=== PATIENT | male | born 1995 | race African-American/Black ===

== ENCOUNTER 2023-05-18 09:16 | Inpatient (IN) | payer OTHER ==
[2023-05-18] MEDS ORDERED: KETOROLAC TROMETHAMINE 30 MG/1 ML VIAL IM ONE (09:57)
[2023-05-18] MEDS ORDERED: LIDOCAINE 5% TOPICAL PATCH TP ONE (09:57)
[2023-05-18] MEDS ORDERED: LIDOCAINE 5% TOPICAL PATCH ONE (10:04)
[2023-05-18] MEDS ORDERED: KETOROLAC TROMETHAMINE 30 MG/1 ML VIAL ONE (10:04)
[2023-05-18] MEDS ORDERED: DEXAMETHASONE SOD PHOSPHATE 10 MG/1 ML VIAL IM ONE (11:33)
[2023-05-18] MEDS ORDERED: DEXAMETHASONE SOD PHOSPHATE 10 MG/1 ML VIAL ONE (11:38)
[2023-05-18 14:56] LABS: BASO % 0.3 % (0-2.0); HEMATOCRIT 45.5 % (35.4-49); HEMOGLOBIN 14.9 GM/dL (11.7-16.9); LYMPH % 13.5 % (8-40); MCH 24.9 pg (25.7-33.7); MCHC 32.8 g/dl (32.0-35.9); MEAN CELL VOLUME 75.8 fl (80-96); MEAN PLT VOLUME 9.4 fl (7.5-11.1); MONO % 2.2 % (3.8-10.2); PLATELET COUNT 250 10^3/uL (134-434); RDW 13.5 % (11.9-15.9); WHITE BLOOD COUNT 7.2 K/mm3 (4.0-10.0)
[2023-05-18 15:03] LABS: INR 1.08 (0.83-1.09); PROTHROMBIN TIME (PATIENT) 12.5 SEC (9.7-13.0)
[2023-05-18 15:06] LABS: ACTIVATED PTT 37.1 SECONDS (25.2-36.5)
[2023-05-18 15:16] LABS: CALCIUM 9.8 mg/dL (8.5-10.1)
[2023-05-18 15:17] LABS: ALBUMIN 4.1 g/dl (3.4-5.0); BLOOD UREA NITROGEN 17.4 mg/dL (7-18)
[2023-05-18 15:22] LABS: BILIRUBIN,TOTAL 0.3 mg/dL (0.2-1); TOT PROT 8.1 g/dl (6.4-8.2)
[2023-05-18] MEDS ORDERED: HYDROmorphone HCl 2 MG/ML VIAL IVPB PRN (17:09)
[2023-05-18] MEDS ORDERED: HYDROmorphone HCl 2 MG/ML VIAL ONE (19:48)
[2023-05-18] MEDS ORDERED: LIDOCAINE PATCH REMOVAL MC ONE (22:00)
[2023-05-18 23:42] VITALS: BMI 43.8
[2023-05-19] MEDS: CYCLOBENZAPRINE HCL 5 MG TABLET PO SCH ×4 (00:17→21:37)
[2023-05-19] MEDS ORDERED: traMADol HCL 50 MG TABLET PO PRN (08:45)
[2023-05-19] MEDS: ENOXAPARIN NA (PORCINE) 40 MG/0.4 ML DISP.SYRIN SQ SCH (10:50)
[2023-05-19] MEDS: KETOROLAC TROMETHAMINE 30 MG/1 ML VIAL IVPUSH SCH ×2 (11:56→18:22)
[2023-05-19] MEDS: GABAPENTIN 100 MG CAPSULE PO SCH ×2 (14:16→21:37)
[2023-05-19] MEDS ORDERED: FAMOTIDINE 20 MG TABLET PO ONE (19:51)
[2023-05-19] MEDS: methylPREDNISolone 4 MG TABLET PO SCH ×2 (20:11→21:37)
[2023-05-19 22:47] VITALS: RESP 20
[2023-05-20] MEDS: KETOROLAC TROMETHAMINE 30 MG/1 ML VIAL IVPUSH SCH ×2 (02:23→09:23)
[2023-05-20] MEDS: GABAPENTIN 100 MG CAPSULE PO SCH (06:11)
[2023-05-20] MEDS: CYCLOBENZAPRINE HCL 5 MG TABLET PO SCH (06:11)
[2023-05-20 07:39] VITALS: BP 111/50; PULSE 60; TEMP 98.3
[2023-05-20] MEDS: ENOXAPARIN NA (PORCINE) 40 MG/0.4 ML DISP.SYRIN SQ SCH (09:24)
[2023-05-20] MEDS: methylPREDNISolone 4 MG TABLET PO SCH (09:25)
[2023-05-20] MEDS ORDERED: methylPREDNISolone 4 MG TABLET PO SCH (18:00)
== END 2023-05-20 12:53 | disposition home or self-care (01) | DRG 347 ==
LOC: JERFT 09:16 → JERBED 13:56 → OBSVTOIN 17:07 → J8W 22:52
PROVIDERS: ADMIT Internal Medicine; ATTEND Internal Medicine
DX: M48.061 Spinal stenosis, lumbar region without neurogenic claudication (principal); Z68.41 Body mass index [BMI] 40.0-44.9, adult; M51.16 Intervertebral disc disorders with radiculopathy, lumbar region; I10 Essential (primary) hypertension; E66.01 Morbid (severe) obesity due to excess calories
CPT/HCPCS: 36415; 72148-TC; 80053; 85025; 85610; 85730; 86850; 86900; 86901; 97116-GP; 97161-GP; 99285-25; G0378; J1100

== ENCOUNTER 2023-06-23 18:40 | Observation (INO) | payer OTHER ==
[2023-06-23 20:07] VITALS: BMI 42.0
[2023-06-23] MEDS ORDERED: ACETAMINOPHEN 1000 MG/100 ML BAG IVPB ONE (20:16)
[2023-06-23] MEDS ORDERED: ACETAMINOPHEN INJECTION 100 ML IVPB ONE (20:37)
[2023-06-23 20:48] LABS: BASO % 0.3 % (0-2.0); EOS % 0.4 % (0-4.5); HEMATOCRIT 43.8 % (35.4-49); HEMOGLOBIN 14.5 GM/dL (11.7-16.9); LYMPH % 17.9 % (8-40); MCH 25.1 pg (25.7-33.7); MCHC 33.1 g/dl (32.0-35.9); MEAN PLT VOLUME 9.1 fl (7.5-11.1); MONO % 6.5 % (3.8-10.2); NEUT % 74.9 % (42.8-82.8); PLATELET COUNT 260 10^3/uL (134-434); RBC 5.76 M/mm3 (4.00-5.60); RDW 14.2 % (11.9-15.9)
[2023-06-23] MEDS ORDERED: LIDOCAINE 5% TOPICAL PATCH TP ONE ×2 (21:06)
[2023-06-23] MEDS ORDERED: LIDOCAINE 4% PATCH TP ONE (21:10)
[2023-06-23 21:18] LABS: CALCIUM 9.6 mg/dL (8.5-10.1); POTASSIUM 4.2 mmol/L (3.5-5.1)
[2023-06-23 21:19] LABS: ALBUMIN 4.1 g/dl (3.4-5.0)
[2023-06-23 21:22] LABS: CREATININE 0.9 mg/dL (0.55-1.3)
[2023-06-23 21:24] LABS: BILIRUBIN,TOTAL 0.5 mg/dL (0.2-1); TOT PROT 7.8 g/dl (6.4-8.2)
[2023-06-23] MEDS ORDERED: LIDOCAINE PATCH REMOVAL MC SCH (22:00)
[2023-06-24] MEDS ORDERED: KETOROLAC TROMETHAMINE 15 MG/ML VIAL IVPUSH ONE (00:16)
[2023-06-24] MEDS ORDERED: METHOCARBAMOL 500 MG TABLET PO ONE (00:17)
[2023-06-24] MEDS ORDERED: METHOCARBAMOL 500 MG TABLET ONE (01:13)
[2023-06-24] MEDS ORDERED: KETOROLAC TROMETHAMINE 15 MG/ML VIAL ONE (01:13)
[2023-06-24] MEDS ORDERED: ACETAMINOPHEN 1000 MG/100 ML BAG IVPB PRN (05:21)
[2023-06-24] MEDS ORDERED: KETOROLAC TROMETHAMINE 15 MG/ML VIAL IVPUSH PRN (05:22)
[2023-06-24] MEDS ORDERED: ALBUTEROL SO4 HFA INHALER IH PRN (08:02)
[2023-06-24] MEDS ORDERED: GABAPENTIN 100 MG CAPSULE ONE ×2 (08:13→17:19)
[2023-06-24] MEDS ORDERED: CYCLOBENZAPRINE HCL 5 MG TABLET ONE ×2 (08:14→17:19)
[2023-06-24] MEDS: GABAPENTIN 100 MG CAPSULE PO SCH ×3 (08:17→22:52)
[2023-06-24] MEDS: CYCLOBENZAPRINE HCL 5 MG TABLET PO SCH ×3 (08:17→22:51)
[2023-06-24 08:50] LABS: BASO % 0.3 % (0-2.0); HEMOGLOBIN 13.8 GM/dL (11.7-16.9); LYMPH % 40.2 % (8-40); MCH 25.6 pg (25.7-33.7); MCHC 33.6 g/dl (32.0-35.9); MEAN CELL VOLUME 76.3 fl (80-96); NEUT % 49.5 % (42.8-82.8); PLATELET COUNT 229 10^3/uL (134-434); RBC 5.38 M/mm3 (4.00-5.60); RDW 13.9 % (11.9-15.9); WHITE BLOOD COUNT 6.9 K/mm3 (4.0-10.0)
[2023-06-24 09:18] LABS: POTASSIUM 3.6 mmol/L (3.5-5.1)
[2023-06-24 09:25] LABS: BLOOD UREA NITROGEN 12.8 mg/dL (7-18); CALCIUM 9.3 mg/dL (8.5-10.1); MAGNESIUM 1.9 mg/dL (1.8-2.4)
[2023-06-24 09:29] LABS: CREATININE 0.8 mg/dL (0.55-1.3)
[2023-06-24] MEDS ORDERED: HYDROCHLOROTHIAZIDE 25 MG TABLET (FP) ONE (09:39)
[2023-06-24] MEDS ORDERED: HYDROCHLOROTHIAZIDE 25 MG TABLET (FP) PO SCH (10:00)
[2023-06-24] MEDS ORDERED: LIDOCAINE PATCH REMOVAL MC ONE (10:00)
[2023-06-25] MEDS: CYCLOBENZAPRINE HCL 5 MG TABLET PO SCH ×2 (05:58→13:57)
[2023-06-25] MEDS: GABAPENTIN 100 MG CAPSULE PO SCH ×2 (05:58→13:57)
[2023-06-25 09:00] VITALS: RESP 18
[2023-06-25] MEDS ORDERED: amLODIPine BESYLATE 5 MG TABLET (FP) PO SCH (10:00)
[2023-06-25 15:40] VITALS: BP 133/66; PULSE 81; TEMP 97.6
== END 2023-06-25 15:57 | disposition home or self-care (01) ==
LOC: JER 18:40 → JERBED 06-24 00:39 → J4S 06-24 20:29
PROVIDERS: ADMIT Internal Medicine; ATTEND Family Medicine
PROC: 3E033NZ Introduction of Analgesics, Hypnotics, Sedatives into Peripheral Vein, Percutaneous Approach (ICD-10-PCS; principal; 2023-06-24)
PROC: 3E0333Z Introduction of Anti-inflammatory into Peripheral Vein, Percutaneous Approach (ICD-10-PCS; 2023-06-24)
DX: I10 Essential (primary) hypertension (principal); G89.29 Other chronic pain; M51.16 Intervertebral disc disorders with radiculopathy, lumbar region; R42 Dizziness and giddiness; M54.9 Dorsalgia, unspecified; R55 Syncope and collapse; E66.01 Morbid (severe) obesity due to excess calories; Z68.41 Body mass index [BMI] 40.0-44.9, adult
CPT/HCPCS: 36415; 70450-TC; 71045-TC-FY; 72125-TC; 72128-TC; 72131-TC; 73030-TC-RT-FY; 80048; 80053; 83735; 84100; 84484; 85025; 93005; 93010; 93306-TC; 96374; 96375; 96376; 97116-GP; 97161-GP; 99285-25; G0378

== ENCOUNTER 2023-10-25 09:27 | Emergency (ER) | payer OTHER ==
[2023-10-25 09:43] VITALS: BP 148/89; PULSE 62; RESP 18; TEMP 97.9; BMI 39.5
[2023-10-25] MEDS ORDERED: LIDOCAINE 4% PATCH TP ONE (11:24)
[2023-10-25] MEDS ORDERED: KETOROLAC TROMETHAMINE 30 MG/1 ML VIAL ONE (11:24)
[2023-10-25] MEDS ORDERED: ACETAMINOPHEN 500 MG TABLET (FP) ONE (11:24)
[2023-10-25] MEDS: KETOROLAC TROMETHAMINE 30 MG/1 ML VIAL IM ONE (11:28)
[2023-10-25] MEDS: ACETAMINOPHEN 500 MG TABLET (FP) PO ONE (11:28)
[2023-10-25] MEDS: LIDOCAINE 4% PATCH TP ONE (11:32)
[2023-10-25] MEDS ORDERED: oxyCODONE HCL 5 MG TABLET ONE (12:54)
[2023-10-25] MEDS: oxyCODONE HCL 5 MG TABLET PO ONE (12:55)
[2023-10-25] MEDS ORDERED: LIDOCAINE PATCH REMOVAL MC SCH (22:00)
== END 2023-10-25 13:56 | disposition home or self-care (01) ==
LOC: JERFT 09:27 → JER 09:27 → JERFT 13:56
PROC: 3E0233Z Introduction of Anti-inflammatory into Muscle, Percutaneous Approach (ICD-10-PCS; principal; 2023-10-25)
DX: M54.50 Low back pain, unspecified (principal); G89.29 Other chronic pain
CPT/HCPCS: 96372; 99284-25